=== PATIENT | female | born 1995 | race Two or more races ===

== ENCOUNTER 2024-10-04 20:12 | Observation (INO) | payer MEDICAID, SELFPAY ==
[2024-10-04] VITALS (19 sets, daily range): BP systolic 82–101; BP diastolic 55–65; PULSE 68–116; RESP 16–98; TEMP 36.4; O2SAT 92–100; BMI 29.5
--- NOTE | 2024-10-04 21:02 | XR_ITS ---
Examination: Biophysical profile, ultrasound Date and time of exam: October 04, 2024 at 2133 hrs. Indications: Decreased movement today with hypertension Technique: Multiple transabdominal sonographic images of the pelvis abdomen obtained. Attention is directed to the breathing movement, gross body movement, amniotic fluid volume and tone. Findings: Amniotic fluid index 16.8 cm Total biophysical profile is 8 of 8. breathing movement is 2. Gross body movement is 2. tone is 2. Qualitative amniotic fluid volume is 2 Impression: Biophysical profile is 8 of 8.
== END 2024-10-04 23:41 | disposition home or self-care (01) ==
PROVIDERS: Admitting Provider Obstetrics & Gynecology; Visit Provider Obstetrics & Gynecology
DX: O36.8130 Decreased fetal movements, third trimester, not applicable or unspecified (principal); Z3A.38 38 weeks gestation of pregnancy
CPT/HCPCS: 59025; 59899; 76819

== ENCOUNTER → 2025-05-09 | Outpatient (CLI) | payer MEDICAID, SELFPAY ==
--- NOTE | 2025-05-09 17:00 | XR_ITS ---
Examination: MRI brain without intravenous contrast. Date and time of exam: May 09, 2025, 1703 hours INDICATIONS: Intractable headaches months Technique: Multiple axial and sagittal images of the brain obtained. Siemens high-resolution 1.5 Rubi short bore scanners utilized. Sagittal sections, T1-weighted, TR 500, TE 14, are performed. Axial sections proton-density and T2-weighted have been obtained. Inversion recovery axial images, TR 9, 260, TE 111, TI 2500. Diffusion weighted images, axial sections, TR 4800, TE 128, B value 1000 Axial sections, ADC map, TR 4800, TE 128 Findings: Enlargement of the sella turcica is not present. The optic chiasm and infundibular are not remarkable. Prepontine and interpeduncular cisterns are not enlarged. There is no localized enlargement of the medulla or mahad. Fourth ventricle and cerebellar tonsils appear normal in position. No subacute area of hemorrhage density is seen. Mass in the cerebellopontine angle region is not evident. Globes symmetrical. Orbital musculature including medial lateral rectus muscles do not exhibit abnormality. Diffusion-weighted images demonstrate no focus of restricted diffusion. Increased white matter signal not seen Mass effect upon the ventricular system is not identified. Impression: Negative for acute hemorrhage mass effect or midline shift No acute infarct No MR findings diagnostic for demyelinating disease No cerebral aneurysm or cerebral large vessel arterial conclusions Mild to moderate bilateral mastoiditis
== END | disposition home or self-care (01) ==
LOC: SMRI 16:43
PROVIDERS: PCP Family Medicine; Referring Provider Registered Nurse General Practice; Visit Provider Registered Nurse General Practice
DX: H70.893 Other mastoiditis and related conditions, bilateral (principal); Z71.82 Exercise counseling
CPT/HCPCS: 70544; 70551

== ENCOUNTER 2025-07-20 05:31 | Emergency (ER) | payer MEDICAID, SELFPAY ==
[2025-07-20 05:32] VITALS: BMI 24.2
--- NOTE | 2025-07-20 05:36 | XR_ITS ---
Examination: CT abdomen and pelvis without contrast. Coronal 3-D reconstructions. Sagittal 2-D reconstructions. Date and time of exam: July 20, 2025, 0656 hours, comparison September 14, 2021 INDICATIONS: Lower abdominal pain and vomiting beginning 2 hours ago CTDI: vol (mGy): 7.25 DLP: (mGycm): 377 Technique: Axial images of the abdomen have been obtained, 3 mm slice thickness Intravenous contrast material has not been administered. Low dose protocols were performed. One or more of the following dose reduction techniques were used; automated exposure control, adjustment of the mA and/or KV according to patient size, use of iterative reconstruction technique. Findings: No focal liver or splenic lesions No gallstones No pancreatic or adrenal mass Subtle hyperdensity involving the renal pyramids, no hydronephrosis or ureteral calculi Aorta normal size 3 cm fat-containing umbilical hernia No bowel obstruction No diverticulitis Normal appendix Anteverted uterus, no pelvic mass Intact osseous structures with 3 mm L5-S1 lumbar disc bulge IMPRESSION: Suspicious for nonobstructing nephrocalcinosis, no hydronephrosis or ureteral calculi 3 cm fat-containing umbilical hernia Normal appendix No bladder mass or bladder calculi
[2025-07-20 05:37] VITALS: BP 105/68; PULSE 88; RESP 17; TEMP 36.8; O2SAT 98
--- NOTE | 2025-07-20 05:37 | PD.EDRME ---
Rapid Medical Screening Exam RME Arrival date/time: 07/20/25 05:31 This is a case of 30-year-old female with no medical history came into the emergency room due to lower abdominal pain for 3 days associated with nausea vomiting worsening of the symptoms this patient decided to start consult here in the emergency room patient denies Chief Complaint: Abdominal Pain Time Seen by Provider: 07/20/25 05:36
[2025-07-20 06:23] LABS: Collection Type, Urine Clean Catch
[2025-07-20 06:26] LABS: Basophils # (Auto) 0.0 Thou/mm3 (0.0-0.2); Basophils % (Auto) 1 % (0-2.5); Eosinophils # (Auto) 0.2 Thou/mm3 (0.0-0.5); Eosinophils % (Auto) 2 % (0-10); Hematocrit 40.8 % (36.0-46.0); Hemoglobin 12.8 g/dL (12.0-16.0); Immature Granulocytes Auto 0.01 Thou/mm3 (0.00-0.00); Lymphocytes # (Auto) 2.9 Thou/mm3 (1.0-4.8); Lymphocytes % (Auto) 35 % (10-50); Mean Corpuscular HGB Conc 31.4 g/dl (31.0-37.0); Mean Corpuscular Hemoglobin 23.4 pg (25.0-35.0); Mean Corpuscular Volume 75 fL (80-100); Monocytes # (Auto) 0.7 Thou/mm3 (0.0-0.8); Monocytes % (Auto) 8 % (0-12); Neutrophils # (Auto) 4.6 Thou/mm3 (1.8-7.7); Neutrophils % (Auto) 54 % (37-80); Nucleated Red Blood Cell # 0.00 Thou/mm3 (0.00-0.00); Nucleated Red Blood Cell % 0 /100 WBC (0); Platelet Count 314 Thou/mm3 (140-440); RDW Standard Deviation 38.1 fL (36.4-46.3); Red Blood Count 5.48 Miln/mm3 (4.00-5.20); White Blood Count 8.4 Thou/mm3 (3.6-11.0)
[2025-07-20 06:39] LABS: HCG Qualitative,Urine Negative
[2025-07-20 06:40] LABS: Bilirubin,Urine Negative (Negative); Blood,Urine Negative (Negative); Clarity,Urine Clear (Clear/Hazy); Color,Urine Yellow (Lt Yel-Yel); Glucose, Urine Negative (Negative); Ketones,Urine Negative (Negative); Leukocyte Esterase,Urine Negative (Negative); Nitrite,Urine Negative (Negative); PH,Urine 5.5 (5.0-7.0); Protein,Urine Negative (Neg - Trace); RBC,Urine 4 /hpf (0-3); Specific Gravity,Urine 1.027 (1.001-1.035); Squamous Epithelial Cell,Urine 2 /hpf (0-5); Urobilinogen,Urine Negative mg/dL (0.0-1.0); WBC,Urine < 1 /hpf (0-5)
[2025-07-20 06:53] LABS: Alanine Aminotransferase 45 U/L (10-49); Albumin, Serum 4.7 gm/dL (3.5-5.0); Albumin/Globulin Ratio 2.0 (1.2-2.2); Alkaline Phosphatase 99 U/L (46-116); Anion Gap 12 (7-16); Aspartate Amino Transferase 18 U/L (0-34); BUN/Creatinine Ratio 11 Ratio (12-20); Bilirubin,Total 0.5 mg/dL (0.3-1.2); Blood Urea Nitrogen 8 mg/dL (9-23); Calcium 9.1 mg/dL (8.3-10.6); Calcium (Corrected) 9.1 mg/dL (8.5-10.1); Carbon Dioxide 21.7 mMol/L (20.0-31.0); Chloride 107 mMol/L (98-107); Creatinine (Component) 0.7 mg/dL (0.6-1.3); Estimated Creatinine Clearance 88.5 mL/min (>60); Globulin 2.4 gm/dL (2.3-3.5); Glucose 98 mg/dL (74-106); Lipase 45 U/L (12-53); Osmolality,Calculated 279 (275-295); Potassium 3.7 mMol/L (3.4-5.1); Sodium 141 mMol/L (136-145); Total Protein 7.1 gm/dL (5.7-8.2); eGFR > 60 See Note
[2025-07-20] MEDS: ACETAMINOPHEN 325 MG TABLET 650 MG PO (07:19)
--- NOTE | 2025-07-20 08:40 | PC.NURSE ---
PROVIDER INFORMED OF UNRELIEVED PAIN.
[2025-07-20] MEDS: KETOROLAC INJ 30 MG/ML VIAL IM (08:48)
--- NOTE | 2025-07-20 09:31 | EDNOTE_ITS ---
Nausea/Vomit./Diarrhea-RME/HPI General Chief complaint: Abdominal Pain Stated complaint: LOWER ABD PAIN AND VOMITING X30 MINUTES Time Seen by Provider: 07/20/25 05:36 Arrival date/time: 07/20/25 05:31 RME / HPI RME / HPI Narrative: 07/20/25 05:31 This is a case of 30-year-old female, patient has a history of right fallopian tube removal but she has both of her ovaries, came into the emergency room due to lower abdominal pain for 3 days associated with nausea vomiting worsening of the symptoms. Patient states the pain does not go to the right of the left and is in the middle. Denies fever, diarrhea, abnormal vaginal bleeding or d ischarge, dysuria, pain with intercourse. Patient states her last menstrual period was about 5 weeks ago. Related Data Home Medications ?Medication ?Instructions ?Recorded ?Confirmed vits no.130-ferrous fum 1 tab PO DAILY 10/04/24 27 mg iron-folic acid 800 mcg tablet ( Vitamin) Allergies Allergy/AdvReac Type Severity Reaction Status Date / Time No Known Drug Allergies Allergy Verified 07/20/25 05:32 ED Exam Narrative Physical exam: Constitutional: Patient alert and oriented. Well appearing. No acute distress. Not toxic appearing. Head: Normocephalic, atraumatic. Eyes: Periorbital regions bilaterally normal to inspection. Conjunctiva clear bilaterally. Sclera anicteric bilaterally. Pupils equal, round, reactive to light bilaterally. Extraocular movements intact bilaterally. Mouth/Throat: Mucous membranes moist. No stridor or muffled voice. No trismus. Handling secretions without difficulty. Airway widely patent. Neck: Supple. Trachea midline. No JVD. No nuchal rigidity. Normal range of motion. Respiratory: Normal effort. No accessory muscle use or respiratory distress. Lungs clear to auscultation bilaterally without rhonchi, wheezes, or crackles. Cardiovascular: RRR. Normal S1/S2. No murmurs or rubs. Radial pulses intact bilaterally. Abdomen: Soft. Non-distended. Non-tender throughout. No pulsatile mass. No guarding or rebound. Negative Gutierrez?s sign. Negative McBurney?s point tenderness. Negative Rovsing?s. : Pelvic declined after discussion of risks and benefits. (she states if her pain worsens she will return) Back: No midline tenderness or step-offs. No CVA tenderness to palpation bilaterally. Upper Extremities: No gross deformities. Lower Extremities: No gross deformities. No edema or calf tenderness. Neuro: Speech normal. No gross motor or sensory deficits to upper or lower extremities bilaterally. GCS 15. CN II?XII grossly intact. Skin: Warm, dry, normal color. Psych: Normal affect. Cooperative. Normal insight. Course Quality Measures none Orders Category Date Time Status CT abdomen pelvis wo con Stat Exams 07/20/25 05:36 Completed US pelvic complete Stat Exams 07/20/25 09:28 Ordered CBC Stat Lab 07/20/25 06:05 Completed Comprehensive Metabolic Panel Stat Lab 07/20/25 06:05 Completed HCG Qualitative,Urine Stat Lab 07/20/25 06:00 Completed Lipase Stat Lab 07/20/25 06:05 Completed Urinalysis Stat Lab 07/20/25 06:00 Completed Acetaminophen Tab [Tylenol Tab] Med 07/20/25 06:28 Discontinued 650 mg PO X1 ONE Ketorolac Inj [Toradol Inj] Med 07/20/25 08:43 Discontinued 30 mg IM X1 ONE Vital Signs Vital signs: Vital Signs Temperature 98.2 F 07/20/25 05:37 Pulse Rate 88 07/20/25 05:37 Respiratory Rate 17 07/20/25 05:37 Blood Pressure 105/68 07/20/25 05:37 Pulse Oximetry (%) 98 07/20/25 05:37 Oxygen Delivery Method Room Air 07/20/25 05:37 Nausea/Vomiting/Diarrhea MDM Narrative MDM Narrative:: MDM: The patient presents with abdominal pain without definite explanation found on evaluation today. However, there are no signs of peritonitis or other life- threatening or serious etiology. I considered admission; however, given negative work up and imaging, admission is not indicated. The patient appears stable for discharge and has been instructed to return for re-evaluation immediately if the symptoms worsen or change in any way. If the symptoms are not resolved in 24-48 hours, the patient is asked to get rechecked by their PMD or return to the ED. Patient data External records reviewed:: [facility] previous records Clinical information provided by:: none Social determinants that could affect healthcare access:: none Patient has the following chronic illnesses:: As noted How is presenting disease/condition affected by chronic disease/condition?: uneffected by Evaluation data The following diagnostics were reviewed and interpreted by me:: lab results, radiology exam(s) and other (specify) Lab and/or radiology exams considered but not ordered:: Labs and radiology considered, but not ordered as they were not clinically indicated at this time. Interpretation Summary: No severe metabolic or electrolyte abnormality. CT scan does note nonobstructing renal calculi bilaterally without hydronephrosis. No diverticulitis. Normal appendix. No bowel obstruction or perforation. UA with microscopic hematuria with 4 RBCs however no signs of infection. Medications / Prescriptions Medications / Prescriptions considered but not ordered:: I considered prescription management (both outpatient prescriptions AND drug treatment in the ER) and decided that this was necessary and was prescribed as charted. Medication administrations:: Medication Administration History Discontinued Medications Acetaminophen (Acetaminophen 325 Mg Tablet) 650 mg PO X1 ONE Stop: 07/20/25 06:29 Last Admin: 07/20/25 07:19 Dose: 650 mg Documented By: LP Ketorolac Tromethamine (Ketorolac Inj 30 Mg/Ml Vial) 30 mg IM X1 ONE Stop: 07/20/25 08:44 Last Admin: 07/20/25 08:48 Dose: 30 mg Documented By: LP As noted Consultations Consultation(s) initiated? (list below): No Diagnosis Nausea Differential Diagnosis: gastroenteritis, drug-induced nausea and vomiting and other Most likely diagnosis given after review of the tests above:: Abdominal pain of unclear etiology Admission Indicated Admission indicated?: not indicated Admission Request Was there a request for admission?: No Disposition Plan Disposition Plan: Discharge Discharge Attestation Discharge Attestation: The patient and all family members were given an opportunity to ask questions and understood the discharge instructions. Discharge instructions specifically effects, indications for sooner follow up or return to the emergency department, and the expected course of current diagnosis. Patient condition: Stable Discharge Plan Plan Patient Disposition: HOME (Self Care) Patient condition on transfer: Stable Prescriptions/Referrals Prescriptions/Med Rec: No Action Vitamin 27 mg iron- 800 mcg tablet 1 tab PO DAILY Patient Comments: TAKE 1 TABLET BY MOUTH EVERY DAY Referrals: No Primary/Family,Physician [Primary Care Provider] - In 1 week Problem List Clinical Impression: Abdominal pain Patient/Caregiver Discharge Instructions Education Materials: Abdominal Pain Additional Instructions: Follow up with your primary medical doctor within 24 hours. Return to the Emergency Room immediately for any new, worsening, continuing symptoms or any concerns at all. Return to the Emergency Room within 24 hours if you are unable to follow up with your primary medical doctor within 24 hours. Print Language: Citizen Of [place] Stand Alone Forms: [employer]udence Award Info., Patient Portal Info Letter PA/PRIMARY CLINICIAN Supervising Physician PA/PRIMARY CLINICIAN Supervising Physician: Dr. Bradford
== END 2025-07-20 10:46 | disposition home or self-care (01) ==
PROVIDERS: Nurse Practitioner Family; Emergency Provider Emergency Medicine
DX: R10.9 Unspecified abdominal pain (principal)
CPT/HCPCS: 36415; 74176; 80053; 81001; 81025; 83690; 85025; 96372; 99283; J1885; A9270